=== PATIENT | male | born 1980 ===

== ENCOUNTER 2020-10-16 11:58 | Outpatient (REF) | payer SELFPAY ==
[2020-10-16 14:00] LABS: MANUAL DIFF FLAG NO
[2020-10-16 14:16] LABS: Basophils Percent Auto 0.5 % (0-2); Eosinophils Absolute Auto 0.2 X10*3/uL (0.0-0.4); Eosinophils Percent Auto 3.4 % (0-4); Hematocrit 48.3 % (42-52); Hemoglobin 16.4 g/dl (14.0-18.0); Imm Gran Abs Auto 0.02 X10*3/uL (0.00-0.03); Imm Gran Pct Auto 0.4 % (0.0-0.4); Lymphocytes Absolute Auto 2.2 X10*3/uL (1.2-4.9); Lymphocytes Percent Auto 38.4 % (20-40); Mean Corpuscular Hemoglobin 30.1 pg (27.0-33.0); Mean Corpuscular Volume 88.8 fL (80-98); Mean Platelet Volume 10.1 fL (9.4-12.4); Monocytes Absolute Auto 0.3 X10*3/uL (0.1-1.2); Monocytes Percent Auto 4.8 % (2-11); Neutrophils Absolute Auto 2.9 X10*3/uL (2.0-8.3); Neutrophils Percent Auto 52.5 % (45-73); Platelet Count 262 X10*3/uL (160-400); Red Blood Count 5.44 X10*6/uL (4.60-5.80); Red Cell Distribution Width 12.9 % (11.0-16.0); White Blood Count 5.6 X10*3/uL (4.8-10.8)
[2020-10-16 14:47] LABS: Alanine Aminotransferase 54 U/L (0-40); Anion Gap 12 (12-20); Aspartate Amino Transferase 30 U/L (5-37); Blood Urea Nitrogen 13 mg/dL (9-16); Calcium 9.8 mg/dL (8.4-10.2); Carbon Dioxide 32 mmol/L (22-29); Chloride 101 mmol/L (96-108); Cholesterol 176 mg/dL; Estimated Glomerular Filt Rate > 60; Glucose Fasting 79 mg/dL (60-99); HDL Cholesterol 40 mg/dL; LDL Cholesterol Calculated 81 mg/dl; Potassium 4.7 mmol/l (3.3-5.1); Sodium 140 mmol/L (135-145); Triglycerides 276 mg/dL
== END 2020-10-16 11:59 | disposition home or self-care (01) ==
LOC: HO.HMGCLDS 11:58
PROVIDERS: PCP Internal Medicine; Visit Provider Internal Medicine
DX: Z00.00 Encounter for general adult medical examination without abnormal findings (principal); I10 Essential (primary) hypertension; M53.9 Dorsopathy, unspecified
CPT/HCPCS: 36415; 80048; 80061; 84450; 84460; 85025

== ENCOUNTER → 2021-05-17 15:00 | Outpatient (BNVA) | payer MEDICARE, SELFPAY | PROVIDERS: PCP Internal Medicine; Referring Provider Internal Medicine; Visit Provider Urology | DX: Z30.09 Encounter for other general counseling and advice on contraception (principal); F41.8 Other specified anxiety disorders | CPT/HCPCS: 99202 ==

== ENCOUNTER 2021-08-05 06:30 | Emergency (ER) | payer MEDICARE, SELFPAY ==
--- NOTE | ~2021-08-05 | XR_ITS ---
EXAMINATION: XR LUMBOSACRAL SPINE CLINICAL INFORMATION: Back pain COMPARISON: None TECHNIQUE: Three views of the lumbosacral spine. FINDINGS: Bone alignment is normal. No fracture or dislocation is seen. There is degenerative disc disease at L5-S1. Disc spaces are otherwise normal. Paraspinal soft tissues are normal. XR/XR lumbar spine 2-3V IMPRESSION: Degenerative disc disease at L5-S1.
[2021-08-05 06:56] VITALS: BP 129/74; PULSE 58; RESP 16; TEMP 35.7; O2SAT 99; BMI 28.1
--- NOTE | 2021-08-05 07:45 | ED.BACK ---
HPI - Back Pain/Injury General Chief Complaint: Back Pain/Injury Stated Complaint: back pain Time Seen by Provider: 08/05/21 07:37 Source: patient Mode of arrival: ambulatory Limitations: no limitations History of Present Illness HPI Narrative: This is a very pleasant 40 years old male presented ambulatory to the emergency department with a chief complaint of lower back pain. He states that on Thursday was a work he lifted a heavy weight and since then he has been experiencing lower back pain. Denies any problem with bladder, denies any saddle anesthesia, denies any weakness. He is overall healthy. MD elicited complaint: back pain Onset (ago): day(s) (3) Timing: constant Severity: moderate Similar Symptoms Previously: No Quality: sharp Location: lumbar spine Radiation: none Exacerbating factors: movement Relieving factors: none Context: while lifting Associated symptoms: denies other symptoms Related Data Home Medications Medication Instructions Recorded Confirmed ibuprofen 200 mg tablet (Advil) 200 mg PO Q6H PRN 10/16/20 Previous Rx's Medication Instructions Recorded famotidine 40 mg tablet 40 mg PO DAILY #30 tab 10/16/20 acetaminophen 300 mg-codeine 30 mg 1 tab PO Q8H #7 tab 05/17/21 tablet diazepam 2 mg tablet (Valium) 2 mg PO DAILY #2 tab 05/17/21 naproxen 500 mg tablet (Naprosyn) 500 mg PO BID PRN #20 tab 08/05/21 oxycodone 5 mg capsule 5 mg PO Q8H PRN #12 cap 08/05/21 Allergies Allergy/AdvReac Type Severity Reaction Status Date / Time carisoprodol [Soma] Allergy Unknown itchy Verified 05/17/21 15:08 orphenadrine Allergy Unknown itchy Verified 05/17/21 15:08 Review of Systems Review of Systems: Yes all other systems are reviewed and are negative Constitutional: Constitutional: Denies fever(s) and Denies frequent falls Cardiovascular: Cardiovascular: Denies chest pain Respiratory: Respiratory: Reports no additional respiratory complaints Gastrointestinal: Gastrointestinal: Denies diarrhea, Denies nausea and Denies vomiting Neurologic: Denies frequent falls, Denies radicular pain and Denies restless legs PMFSH Past Medical History Medical History Fracture of metacarpophalangeal (MCP) joint Heartburn Multilevel degenerative disc disease Vasectomy evaluation Family History Family History Father Diabetes mellitus Social History Social History Alcohol intake: never Smoked in Last 30 Days: No Use of substances other than those prescribed or required for medical reasons: No Advance Directives: Yes Advance Directives Information Provided: Yes Advance Directives on File: No Physical Exam Vital Signs: Vital Signs: Last Vital Signs Temp 96.3 F L 08/05/21 06:56 Pulse 58 08/05/21 06:56 Resp 16 08/05/21 06:56 BP 129/74 08/05/21 06:56 Pulse Ox 99 08/05/21 06:56 Body Mass Index 28.1 Const: Other: He appear well in not acute distress he is drinking coffee during my exam General: cooperative, healthy appearing, comfortable and no acute distress Nutritional Appearance: average body habitus Orientation/consciousness: oriented to person, oriented to place and patient oriented x3 HENMT: Head: Yes normal to inspection General nose exam: Normal external nose present Face and sinus: Yes normal facial exam Mouth: Normal oral and palatal mucosa present Neck: Neck: Yes normal visual inspection and Yes full ROM Chest: Chest palpation & inspection: normal inspection of the chest Resp: Effort & Inspection: normal respiratory effort Auscultation: clear to auscultation bilaterally Cardio: Jugular venous distension: no JVD Rate: regular rate Rhythm: regular rhythm GI: Inspection: Yes normal to inspection Palpation (GI): Soft to palpation Skin: General skin exam: no rashes or lesions noted, elasticity normal and turgor normal Lesions: no lesions Rashes: no rashes Neuro: General: oriented to person, oriented to place and patient oriented x3 Cranial nerves: Yes CN's II-XII intact bilaterally Gait exam (Neuro): Normal gait present Motor exam (neuro): 5/5 motor strength present throughout Course Course Course Narrative: I reviewed the x-ray I do not see any acute bony abnormality, patient is fully ambulatory he does not have any neuro deficit no red flags such as fever such as IVDA he will be discharged home with follow-up with the primary care physician MDM - Back Pain/Injury Imaging Data LS Spine xray: Radiologist's impression: EXAMINATION: XR LUMBOSACRAL SPINE CLINICAL INFORMATION: Back pain COMPARISON: None TECHNIQUE: Three views of the lumbosacral spine. FINDINGS: Bone alignment is normal. No fracture or dislocation is seen. There is degenerative disc disease at L5-S1. Disc spaces are otherwise normal. Paraspinal soft tissues are normal. XR/XR lumbar spine 2-3V IMPRESSION: Degenerative disc disease at L5-S1. Dictated By: Discharge Plan Discharge Clinical Impression: Back pain Patient Disposition: Home, Self-Care Instructions: Acute Low Back Pain (ED) Additional Instructions: Please follow-up with your primary care physician tomorrow, return to the emergency room if you worse, if you of weakness in the legs if you experience numbness in the legs review of problem urinating/unable to urinate Prescriptions: New oxycodone 5 mg capsule 5 mg PO Q8H PRN (Reason: pain) Qty: 12 RF: 0 naproxen [Naprosyn] 500 mg tablet 500 mg PO BID PRN (Reason: PAIN) Qty: 20 RF: 0 No Action ibuprofen [Advil] 200 mg tablet 200 mg PO Q6H PRNRF: 0 famotidine 40 mg tablet 40 mg PO DAILY Qty: 30 RF: 4 acetaminophen-codeine 300-30 mg tablet 1 tab PO Q8H Qty: 7 RF: 0 diazepam [Valium] 2 mg tablet 2 mg PO DAILY Qty: 2 RF: 0 Referrals: Judith Reaves MD [Primary Care Provider] - 2 days Stand Alone Forms: Work/School Release Interventions: ED Discharge Assessment Last Done: 08/05/21 08:52 Discharge Date/Time: 08/05/21 08:53
[2021-08-05] MEDS: NaPROXEN 500 MG TABLET PO (08:13)
== END 2021-08-05 08:53 | disposition home or self-care (01) ==
PROVIDERS: Emergency Provider Emergency Medicine; PCP Internal Medicine
DX: M54.50 Low back pain, unspecified (principal)
CPT/HCPCS: 72100; 99283; 99284

== ENCOUNTER → 2021-09-04 11:02 | Outpatient (BNVA) | payer MEDICARE, SELFPAY | PROVIDERS: PCP Internal Medicine; Visit Provider Urology | DX: Z30.2 Encounter for sterilization (principal); F41.8 Other specified anxiety disorders | CPT/HCPCS: 55250 ==

== ENCOUNTER → 2021-12-04 15:23 | Outpatient (BNVA) | payer MEDICARE, SELFPAY | PROVIDERS: PCP Internal Medicine; Visit Provider Urology | DX: Z30.2 Encounter for sterilization (principal); F41.8 Other specified anxiety disorders; Z88.8 Allergy status to other drugs, medicaments and biological substances | CPT/HCPCS: 99212 ==

== ENCOUNTER 2022-01-30 17:51 | Outpatient (REF) | payer BC, SELFPAY ==
[2022-01-30 18:55] LABS: Influenza A PCR NEGATIVE (Negative); Influenza B PCR NEGATIVE (Negative); Resp Syncy Virus RNA Qual PCR NEGATIVE (Negative); SARS COV2 PCR INHOUSE NEGATIVE (Negative)
== END 2022-01-30 17:52 | disposition home or self-care (01) ==
LOC: HO.LNP 17:51
PROVIDERS: Visit Provider Internal Medicine
DX: Z20.822 Contact with and (suspected) exposure to COVID-19 (principal); J02.9 Acute pharyngitis, unspecified; R05.9 Cough, unspecified
CPT/HCPCS: 0241U

== ENCOUNTER 2023-12-16 08:35 | Outpatient (AMB) | payer OTHER, SELFPAY ==
[2023-12-16 08:40] VITALS: BP 118/70; PULSE 75; O2SAT 97; BMI 28.7
--- NOTE | 2023-12-16 08:40 | MHC.PC.OV ---
Vital Signs 12/16/23 08:40 Height 5 ft 7 in Weight 183 lb 4 oz BMI 28.7 BP 118/70 Blood Pressure Location Lt brachial Position Sitting Pulse 75 Pulse Source Pulse Oximeter Pulse Oximetry (%) 97 Oxygen Delivery Method Room Air Intake Visit Reasons: Est care, + Tspot Allergies carisoprodol [Soma] Allergy (Unknown, Verified 12/16/23 09:01) itchy orphenadrine Allergy (Unknown, Verified 12/16/23 09:01) itchy Medication List - Last Reconciled 12/16/23 by TALISHA Conti ibuprofen (Advil) 200 mg PO Q6H PRN Tobacco use date assessed: 12/16/23 Dental Screening Dental Screen Date: 12/16/23 Did you have a dental visit in the last 12 months?: No Did you have a dental problem in the last 6 months where you did not have access to dental care?: No Was dental information given to patient?: Patient has dentist HPI HPI Comments History of Present Illness Details Patient recently, 6 days prior to this appointment, had hep B, Tdap, MMR, varicella, COVID-19, influenza vaccine. 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 Patient [place]. Patient denies any symptoms today. Denies chest pain, shortness a breath, nausea, vomiting, diarrhea, cough, numbness. [facility] Medical History Heartburn Vasectomy evaluation Fracture of metacarpophalangeal (MCP) joint Multilevel degenerative disc disease Family History Father Diabetes mellitus Social History Housing: House Alcohol intake: never Patient Tobacco Use Status: Never used Tobacco e-Cigarette/Vaping Use: Never Used Second Hand Smoke Exposure: No Current occupational status: employed Current occupation: [employer] Current occupational exposures/hazards: Yes Questionnaire PHQ-9 Over the last 2 weeks, how often have you been bothered by any of the following problems? 1. Little interest or pleasure in doing things: not at all 2. Feeling down, depressed, or hopeless: not at all 3. Trouble falling or staying asleep, or sleeping too much: not at all 4. Feeling tired or having little energy: not at all 5. Poor appetite or overeating: not at all 6. Feeling bad about yourself - or that you are a failure or have let yourself or your family down: not at all 7. Trouble concentrating on things, such as reading the newspaper or watching television: not at all 8. Moving or speaking so slowly that other people could have noticed. Or the opposite - being so fidgety or restless that you have been moving around a lot more than usual: not at all 9. Thoughts that you would be better off or of hurting yourself in some way: not at all Total score: 0 Depression Screening Interpretation: Negative Depression Screening Done: Yes 96172 - PHQ-9 Billing: Yes Source: Developed by Drs. Rangel Leija, Melania Guadarrama, Nilson Canela and colleagues, with an educational wil from [employer] Thrive Questionnaire Date Thrive assessed: 12/16/23 I am a: Patient What is your living situation today?: I have a steady place to live Within the past 12 months, did the food you bought not last and you didn't have the money to get more?: Never true Within the past 12 months, did you worry whether your food would run out before you got money to buy more?: Never true Do you have trouble paying for medicines?: No Do you have trouble getting transportation to medical appointments?: No Do you have trouble paying your heating and electricity bill?: No Do you have trouble taking care of your child, family member or friend?: No Do you have trouble with day-to-day activities such as bathing, preparing meals, shopping, managing finances, etc.?: No Are you currently unemployed and looking for a job?: No Are you interested in more education?: Yes THRIVE Score: 0 AUDIT C Alcohol Use Questionnaire (AUDIT-C) 1. How often do you have a drink containing alcohol?: 2-4 times a month 2. How many drinks containing alcohol do you have on a typical day when you are drinking?: 3 or 4 3. How often do you have six or more drinks on one occasion?: Never Total Score: 3 ROLAND-7 AMB Questionnaire ROLAND-7 Date ROLAND - 7 assessed: 12/16/23 Feeling nervous, anxious, or on edge: 0 = Not at all Not being able to stop or control worryin = Not at all Worrying too much about different things: 0 = Not at all Trouble relaxin = Not at all Being so restless that it is hard to sit still: 0 = Not at all Becoming easily annoyed or irritable: 0 = Not at all Feeling afraid as if something awful might happen: 0 = Not at all Total ROLAND-7 score (0-4 normal; 5-9 mild; 10-14 moderate; 15-21 severe): 0 Source: Developed by Drs. Rangel Leija, Melania Guadarrama, Nilson Canela and colleagues, with an educational wil from [employer] ROLAND-7 Assessment Billing ROLAND-7 Assessment Tool: ROLAND-7 Assessment 65040 Review of Systems Const Details: Constitutional : No Weight loss, No Fever, No Chills, No Fatigue, No Malaise ENT/Mouth : No sore throat, No Rhinorrhea Eyes: No Eye Pain, No Swelling, No Redness Cardiovascular : No Chest Pain, No SOB, No Dyspnea on Exertion, No Orthopnea, No Edema, No Palpitations Respiratory : No Cough, No Sputum, No Wheezing Gastrointestinal : No Nausea, No Vomiting, No Diarrhea, No Constipation, No abdominal Pain, No Hematochezia, No Melena Genitourinary : No Dysuria, No Urinary Frequency, No Hematuria, Musculoskeletal : No joint pain, No Myalgias, No Joint Swelling Skin : No Skin Lesions, No rash Neuro : No Weakness, No Numbness, No Dizziness, No Headache Psych : No Anxiety/Panic, No Depression Heme/Lymph: No Bruising, No Bleeding,No Lymphadenopathy Endocrine : No Polyuria, No Polydipsia All other systems reviewed and are negative Physical exam (Primary Care) Vital Signs: Last Vital Signs Pulse 75 12/16/23 08:40 BP 118/70 12/16/23 08:40 Pulse Ox 97 12/16/23 08:40 Oxygen Delivery Method Room Air 12/16/23 08:40 Care Plan Goal for BP management: Vital signs reviewed stable BMI result Body Mass Index 28.7 Tobacco/Smoking Status: Tobacco use Status Tobacco use date assessed 12/16/23 12/16/23 08:47 Patient Tobacco Use Status Never used Tobacco 12/16/23 08:47 e-Cigarette/Vaping Use Never Used 12/16/23 08:47 Depression Screening Interpretation: Negative Const Other: Appearance: Alert.? Oriented X3.? No acute distress.? Head: Normocephalic, atraumatic, no step-offs or deformities Eyes: Pupils equal, round and reactive to light.? Neck: Normal inspection.? Neck supple.? CVS: Normal heart rate and rhythm.? Pulses normal.?+ systolic murmur. Respiratory: No respiratory distress.? Breath sounds normal.? Neuro: Oriented X 3.? No motor deficit.? No sensory deficit. CN 2-12 intact Assessment and Plan Assessment & Plan (1) Positive TB test: Comment: Patient immigrated from country [place]. Recent T spot came up positive. Will order chest x-ray. Will order CBC CMP Code(s): R76.11 - Nonspecific reaction to tuberculin skin test without active tuberculosis (2) Systolic murmur: Comment: Patient has systolic murmur on physical exam. Will order echocardiogram to get baseline Code(s): R01.1 - Cardiac murmur, unspecified Plan: Take your medications as prescribed. If you were prescribed antibiotics today, it is important that you take your medication to their entirety, do not skip any doses, do not finish them early. Follow-up with your primary care provider this week. Return to the emergency department with new or worsening symptoms. Such as fevers, chills, chest pain, shortness of breath, nausea, vomiting, dizziness, headache, vision changes, lethargy In case of emergency call 911 Plan Follow-up in 4 months. Orders: Orders XR chest 2V Today R76.11 - Nonspecific reaction to tuberculin skin test without active tuberculosis Comprehensive Met. Panel Today Z91.89 - Other specified personal risk factors, not elsewhere classified Complete Blood Count Auto Diff Today D72.829 - Elevated white blood cell count, unspecified CA echo transthoracic complete Today R01.1 - Cardiac murmur, unspecified Review Declined TDap/Td: 12/16/23 Coding Level of Care Code Est Pt Level 3 (00754) Diagnoses Positive TB test R76.11 Systolic murmur R01.1 Additional Codes ROLAND-7 Assessment Billing - ROLAND-7 Assessment Tool: ROLAND-7 Assessment 75049 ([id number]) Time Spent (min) 22
== END 2023-12-16 09:05 | disposition home or self-care (01) ==
PROVIDERS: PCP Internal Medicine; Visit Provider Nurse Practitioner Primary Care
DX: R76.11 Nonspecific reaction to tuberculin skin test without active tuberculosis (principal); R01.1 Cardiac murmur, unspecified
CPT/HCPCS: 99213

== ENCOUNTER 2023-12-16 09:06 | Outpatient (REF) | payer OTHER, SELFPAY ==
--- NOTE | ~2023-12-16 | XR_ITS ---
EXAMINATION: XR CHEST CLINICAL INFORMATION: Nonspecific reaction to tuberculin skin test COMPARISON: None available. TECHNIQUE: 2 views of the chest were obtained. FINDINGS: The cardiomediastinal silhouette is within normal limits. The lungs are well expanded. There is no focal consolidation, edema, or effusion. No pneumothorax. No acute osseous abnormality. XR/XR chest 2V IMPRESSION: No radiographic evidence of active pulmonary disease..
[2023-12-16 10:22] LABS: Basophils Percent Auto 0.4 % (0-2); Eosinophils Absolute Auto 0.1 X10*3/uL (0.0-0.4); Eosinophils Percent Auto 2.7 % (0-4); Hematocrit 44.6 % (42.0-52.0); Hemoglobin 16.2 g/dl (14.0-18.0); Imm Gran Abs Auto 0.02 X10*3/uL (0.00-0.03); Imm Gran Pct Auto 0.4 % (0.0-0.4); Lymphocytes Absolute Auto 1.4 X10*3/uL (1.2-4.9); Lymphocytes Percent Auto 31.2 % (20-40); MANUAL DIFF FLAG SCAN; Mean Corpuscular HGB Conc 36.3 g/dl (31.0-36.0); Mean Corpuscular Hemoglobin 31.5 pg (27.0-33.0); Mean Corpuscular Volume 86.6 fL (80.0-98.0); Mean Platelet Volume 9.5 fL (9.4-12.4); Monocytes Absolute Auto 0.3 X10*3/uL (0.1-1.2); Monocytes Percent Auto 7.4 % (2-11); Neutrophils Absolute Auto 2.6 x10*3/uL (2.0-8.3); Neutrophils Percent Auto 57.9 % (45-73); Platelet Count 245 X10*3/uL (160-400); Red Blood Count 5.15 X10*6/uL (4.60-5.80); Red Cell Distribution Width 11.9 % (11.0-16.0); SCAN SMEAR FLAG 1; White Blood Count 4.5 X10*3/uL (4.8-10.8)
[2023-12-16 11:07] LABS: Alanine Aminotransferase 97 U/L (0-40); Albumin Level 4.2 g/dL (3.5-5.0); Alkaline Phosphatase 127 U/L (39-117); Anion Gap 13 (12-20); Aspartate Amino Transferase 41 U/L (5-37); Bilirubin Total 0.8 mg/dL (0.0-1.0); Blood Urea Nitrogen 13 mg/dL (9-16); Calcium 9.2 mg/dL (8.4-10.2); Carbon Dioxide 27 mmol/L (22-29); Chloride 105 mmol/L (96-108); Estimated Glomerular Filt Rate > 60; Glucose Random 82 mg/dL (60-115); Potassium 3.3 mmol/L (3.3-5.1); Sodium 142 mmol/L (135-145); Total Protein 8.1 g/dL (6.5-8.0)
[2023-12-16 11:11] LABS: SLIDE REVIEW VERIFIED
== END 2023-12-16 09:07 | disposition home or self-care (01) ==
LOC: HO.HMGCX 09:06
PROVIDERS: PCP Nurse Practitioner Primary Care; Visit Provider Nurse Practitioner Primary Care
DX: R76.11 Nonspecific reaction to tuberculin skin test without active tuberculosis (principal); D72.829 Elevated white blood cell count, unspecified; Z91.89 Other specified personal risk factors, not elsewhere classified
CPT/HCPCS: 36415; 71046; 80053; 85025

== ENCOUNTER → 2024-01-08 08:59 | Outpatient (REF) | payer OTHER, SELFPAY ==
--- NOTE | 2024-01-08 09:05 | CA_ITS ---
Transthoracic Echocardiogram Patient (Last, First, Middle): Ricardo Rosario, Gender: Male Date of : 1980 Age: 43 Procedure Date: 01/08/2024 Procedure Type: Transthoracic Echocardiogram Location: OP Height: 170.18 cm Weight: 81.65 kg BSA: 1.93 m2 Heart Rate: bpm BP: 124 / 80 mmHg Embedded Software Architect: Referring MD: Reginaldo WOODALL Symptoms: R01.1 - Cardiac murmur, unspecified Study Quality: Good ECG Rhythm: Sinus Conclusions: - The left ventricular systolic function is low normal. The calculated ejection fraction is 54% by biplane method. - No obvious valvular pathology seen on this study. Findings Left Ventricle Normal left ventricular cavity size. There is mildly increased left ventricular wall thickness. The left ventricular systolic function is low normal. The calculated ejection fraction is 54% by biplane method. There is no evidence of regional wall motion abnormalities. Diastolic function is normal for age. Right Ventricle Mildly increased right ventricular cavity size. There is normal right ventricular systolic function. Atria Both atria are normal in size. Aortic Valve There is a normal trileaflet aortic valve. There is no aortic valve stenosis. There is no aortic valve regurgitation. Mitral Valve The mitral valve appears normal. There is trace mitral valve regurgitation. There is no mitral valve stenosis. Pulmonic Valve The pulmonic valve is likely normal. Tricuspid Valve Normal tricuspid valve structure. There is trace tricuspid valve regurgitation. There is no evidence of pulmonary hypertension. Great Vessels The asc aorta is normal in size. Venous The inferior vena cava is normal in size and collapses greater than 50% with inspiration. Pericardium/Pleural There is no evidence of pericardial effusion. Prior Study Comparison No prior study available for comparison. Recommendations, Care & Conclusions No obvious valvular pathology seen on this study. Measurements 2D Linear Measurements IVSd: 1.10 0.6-0.9/0.6-1.0 cm LVIDd: 4.65 3.9-5.3/4.2-5.9 cm LVIDd Index: 2.41 2.4-3.2/2.2-3.1 cm/m2 LVIDs: 3.14 2.0-3.6 cm LVPWd: 1.14 0.7-1.1 cm Ao Root: 2.70 2.1-3.5 cm LA Diam: 3.50 2.7-3.8/3.0-4.0 cm LAIDs Index: 1.81 1.5-2.3 cm/m2 LV Mass: 235.60 67-162/88-224 g LV Mass Index: 122.07 43-95/49-115 g/m2 LVOT Diam: 2.00 3.0+(-)1.3 cm 2D Systolic Function EF 4C: 46.90 >55% EF 2C: 61.40 >55% EF BiP: 53.90 >55% Mitral Valve MV Pk E: 0.89 MV PK A: 0.63 MV Decel Time: 159.00 E/A: 1.40 E'Lateral: 12.20 E'Medial: 8.05 E/E' Med: 11.00 E/E' Lat: 7.30 PHT: 47.00 MVA PHT: 4.68 Decel [place]: 5.57 Aortic Valve AoV Pk José Antonio: 1.51 AoV Mn José Antonio: 1.07 AoV VTI: 0.31 AoV Pk Grad: 9.00 Aov Mn Grad: 5.00 ADRIANE Cont.VTI: 2.56 LVOT LVOT Pk José Antonio: 1.26 LVOT Mn José Antonio: 0.77 LVOT VTI: 0.25 LVOT Pk Grad: 6.00 LVOT Mn Grad: 3.00 LVOT Diam: 2.00 LVOT Area: 3.14 Diastolic Function MV Pk E: 0.89 MV Pk A: 0.63 E/A: 1.40 E'Medial: 8.05 E/E' Med: 11.00 E' Laterial: 12.20 E/E' Lat: 7.30 Right Ventricle TAPSE (mm): 32.00 TVS' José Antonio: 11.00 Tricuspid Valve TR Pk José Antonio: 2.09 TR Pk Grad: 17.00 RA Press: 3.00 RVSP: 20.00 Great Vessels Aorta Ao Root-2D: 2.70 2.0-3.7 cm Ao Asc: 2.90 2.1-3.4 cm Pulmonary Valve PV Pk José Antonio: 1.11 Peak PV Grad: 5.00 Updated in Other Vendor System with Status of Final Skinny Quiroga MD electronically signed on 01/09/2024 1:21:49 PM with status of Final
== END ==
LOC: HO.CARD 08:59
PROVIDERS: PCP Internal Medicine; Visit Provider Nurse Practitioner Primary Care
DX: R01.1 Cardiac murmur, unspecified (principal)
CPT/HCPCS: 93306

== ENCOUNTER → 2024-01-08 09:05 | Outpatient (BNV) | payer OTHER, SELFPAY | PROVIDERS: PCP Internal Medicine; Visit Provider Internal Medicine | DX: R01.1 Cardiac murmur, unspecified (principal) | CPT/HCPCS: 93306 ==

== ENCOUNTER 2024-04-11 11:15 | Outpatient (AMB) | payer OTHER, SELFPAY ==
--- NOTE | 2024-04-11 11:30 | A.OFFPC_ITS ---
Vital Signs 04/11/24 11:31 Height 5 ft 7 in Weight 190 lb BMI 29.8 BP 112/78 Blood Pressure Location Rt brachial Position Sitting Pulse 50 Pulse Source Pulse Oximeter Pulse Oximetry (%) 97 Oxygen Delivery Method Room Air Intake Visit Reasons: 4 month follow up Intake Note: Pt is here today for his f/u HTN Allergies carisoprodol [Soma] Allergy (Unknown, Verified 04/11/24 11:51) itchy orphenadrine Allergy (Unknown, Verified 04/11/24 11:51) itchy Medication List - Last Reconciled 04/11/24 by Judith Reaves MD ibuprofen (Advil) 200 mg PO Q6H PRN Tobacco use date assessed: 04/11/24 Dental Screening Dental Screen Date: 04/11/24 Did you have a dental visit in the last 12 months?: No Did you have a dental problem in the last 6 months where you did not have access to dental care?: No Was dental information given to patient?: Patient has dentist HPI 4 month follow up HPI Details 43-year-old male here today for follow-u p. Blood pressure is normal, currently not on any medications. He has history of hypertriglyceridemia and elevated liver enzymes on previous blood work. States that he has cut back on his alcohol intake, and has been trying to exercise regularly. Has been feeling well with no complaints at present time [facility] Medical History Elevated liver enzymes Hypertriglyceridemia Heartburn Vasectomy evaluation Fracture of metacarpophalangeal (MCP) joint Multilevel degenerative disc disease Family History Father Diabetes mellitus Social History Housing: House Alcohol intake: never Patient Tobacco Use Status: Never used Tobacco e-Cigarette/Vaping Use: Never Used Second Hand Smoke Exposure: No Current occupational status: employed Current occupation: [employer] Current occupational exposures/hazards: Yes Cognitive needs: No Hearing needs: No Vision needs: No Questionnaire Thrive Questionnaire Date Thrive assessed: 12/16/23 ROLAND-7 AMB Questionnaire ROLAND-7 Date ROLAND - 7 assessed: 12/16/23 Source: Developed by Melania Cornell B.W. Thierry, Nilson Canela and colleagues, with an educational wil from [email or web address]. Review of Systems Const Denies body aches, Denies fatigue, Denies fever(s), Denies headache(s) and Denies weakness Eyes Denies change in vision ENT Denies dizziness, Denies headache(s), Denies nasal congestion and Denies nasal discharge Card Denies chest pain, Denies lightheadedness, Denies palpitations and Denies dyspnea Resp Denies chest congestion, Denies cough, Denies dyspnea and Denies wheezing GI Denies abdominal pain and Denies change in bowel habits Denies dysuria, Denies urinary frequency and Denies urinary urgency Musc Reports no additional complaints Skin/Breast Denies lesions and Denies rash Neuro Denies dizziness, Denies headache(s) and Denies weakness Psych Denies anxiety, Denies depression and Denies panic attacks Endo Denies fatigue, Denies polydipsia, Denies polyuria and Denies palpitations Sherwin/Lymph Denies easy bruising Aller/Immun Denies seasonal rhinorrhea and Denies wheezing Physical exam (Primary Care) Vital Signs: Last Vital Signs Pulse 50 04/11/24 11:31 BP 112/78 04/11/24 11:31 Pulse Ox 97 04/11/24 11:31 Oxygen Delivery Method Room Air 04/11/24 11:31 BMI result Body Mass Index 29.8 Tobacco/Smoking Status: Tobacco use Status Tobacco use date assessed 04/11/24 04/11/24 11:32 Patient Tobacco Use Status Never used Tobacco 04/11/24 11:32 e-Cigarette/Vaping Use Never Used 04/11/24 11:32 Thrive Assessment: Date of Thrive Assessment Date Thrive assessed 12/16/23 04/11/24 11:32 Const General: no acute distress and alert Orientation/consciousness: patient oriented x3 HENMT Ears: external ears normal General nose exam: Normal external nose present Mouth: Normal oral and palatal mucosa present, oropharynx normal and moist mucous membranes Eyes General: appearance normal, both eyes and all related structures Neck Neck: Yes full ROM, Yes no lymphadenopathy and Yes supple Resp Effort & Inspection: normal respiratory effort and able to speak in complete sentences Auscultation: clear to auscultation bilaterally Cardio Rate: regular rate Rhythm: regular rhythm Heart sounds: S1 normal heart sound present and S2 normal heart sound present GI Palpation (GI): Soft to palpation, nontender and no masses Auscultation: normal bowel sounds Back/Spine/Pelvis Back: No back tenderness Skin General skin exam: no rashes or lesions noted Neuro General: patient oriented x3, gait normal, tone normal, moves all extremities, Normal light touch and pain sensation and no focal motor deficits Cranial nerves: Yes CN's II-XII intact bilaterally Cognition (Neuro): normal cognition Extrem General: Yes full ROM, Yes no joint enlargement, Yes no clubbing, cyanosis or edema and Yes no calf tenderness Assessment and Plan Assessment & Plan (1) Elevated liver enzymes: Code(s): R74.8 - Abnormal levels of other serum enzymes Plan: Continued abstinence from alcohol, getting lipid levels under good control will check another liver panel on follow-up visit (2) Hypertriglyceridemia: Code(s): E78.1 - Pure hyperglyceridemia Plan: Previous lipid panel showed elevated triglycerides. Patient advised to follow a low-cholesterol diet, cut back on lot of sugary drinks an alcoholic beverage. Reinforceded importance of following a low cholesterol diet and getting regular cardio exercise, at least 30 minutes 3 to 4 times a week. Advised patient to make healthy food choices, eat more fruits, vegetables, whole grains, wild cau ght fish and low-fat dairy. Limit amount of meat and fried or fatty food products, as well as processed foods and fast foods. Do a fasting lipid panel at least some week prior to next appointment Orders: Orders Lipid Panel 05/22/24 E78.1 - Pure hyperglyceridemia, R74.8 - Abnormal levels of other serum enzymes Comprehensive Plac[facility]. Panel Fast 05/22/24 E78.1 - Pure hyperglyceridemia, R74.8 - Abnormal levels of other serum enzymes Coding Level of Care Code Est Pt Level 3 (27584) Diagnoses Elevated liver enzymes R74.8 Hypertriglyceridemia E78.1
[2024-04-11 11:31] VITALS: BP 112/78; PULSE 50; O2SAT 97; BMI 29.8
== END 2024-04-11 12:08 | disposition home or self-care (01) ==
LOC: HO.HMGC 11:15
PROVIDERS: PCP Internal Medicine; Visit Provider Internal Medicine
DX: R74.8 Abnormal levels of other serum enzymes (principal); E78.1 Pure hyperglyceridemia
CPT/HCPCS: 99213

== ENCOUNTER 2024-06-09 06:01 | Outpatient (REF) | payer OTHER, SELFPAY ==
[2024-06-09 10:50] LABS: Alanine Aminotransferase 32 U/L (0-40); Albumin Level 4.1 g/dL (3.5-5.0); Alkaline Phosphatase 123 U/L (39-117); Anion Gap 10 (12-20); Aspartate Amino Transferase 22 U/L (5-37); Bilirubin Total 0.9 mg/dL (0.0-1.0); Blood Urea Nitrogen 16 mg/dL (9-16); Calcium 8.9 mg/dL (8.4-10.2); Carbon Dioxide 25 mmol/L (22-29); Chloride 108 mmol/L (96-108); Cholesterol 142 mg/dL (<200); Estimated Glomerular Filt Rate > 60; Glucose Fasting 100 mg/dL (60-99); HDL Cholesterol 39 mg/dL (>40); LDL Cholesterol Calculated 81 mg/dL (<100); Potassium 3.5 mmol/L (3.3-5.1); Sodium 139 mmol/L (135-145); Total Protein 7.5 g/dL (6.5-8.0); Triglycerides 111 mg/dL (<150)
== END 2024-06-09 06:02 | disposition home or self-care (01) ==
LOC: HO.HMGCLDS 06:01
PROVIDERS: PCP Internal Medicine; Visit Provider Internal Medicine
DX: E78.1 Pure hyperglyceridemia (principal); R74.8 Abnormal levels of other serum enzymes
CPT/HCPCS: 36415; 80053; 80061

== ENCOUNTER 2024-06-14 10:39 | Outpatient (AMB) | payer OTHER, SELFPAY ==
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
[2024-06-14 10:47] VITALS: BP 110/70; PULSE 68; O2SAT 97; BMI 28.3
== END 2024-06-14 11:46 | disposition home or self-care (01) ==
PROVIDERS: PCP Internal Medicine; Visit Provider Internal Medicine
DX: Z00.01 Encounter for general adult medical examination with abnormal findings (principal); M54.16 Radiculopathy, lumbar region

== ENCOUNTER → 2024-06-14 10:39 | Outpatient (BNVA) | payer OTHER, SELFPAY | PROVIDERS: PCP Internal Medicine; Visit Provider Internal Medicine | DX: Z00.01 Encounter for general adult medical examination with abnormal findings (principal); M54.16 Radiculopathy, lumbar region | CPT/HCPCS: 96127 ==

== ENCOUNTER 2024-07-31 15:08 | Outpatient (REF) | payer OTHER, SELFPAY | END 2024-07-31 15:09 | disposition home or self-care (01) | LOC: HO.MRI 15:08 | PROVIDERS: PCP Internal Medicine; Visit Provider Internal Medicine | DX: M54.16 Radiculopathy, lumbar region (principal); Z87.828 Personal history of other (healed) physical injury and trauma | CPT/HCPCS: 72148 ==

== ENCOUNTER 2024-10-03 13:09 | Outpatient (AMB) | payer OTHER, SELFPAY ==
[2024-10-03 13:12] VITALS: BMI 28.5
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
== END 2024-10-03 14:26 | disposition home or self-care (01) ==
PROVIDERS: PCP Internal Medicine; Referring Provider Internal Medicine; Visit Provider Physician Assistant
DX: M54.16 Radiculopathy, lumbar region (principal)
CPT/HCPCS: 99204

== ENCOUNTER 2025-06-22 09:01 | Outpatient (REF) | payer OTHER, SELFPAY ==
[2025-06-22 13:51] LABS: Alanine Aminotransferase 32 U/L (0-40); Aspartate Amino Transferase 32 U/L (5-37); Cholesterol 143 mg/dL (<200); HDL Cholesterol 41 mg/dL (>40); Triglycerides 103 mg/dL (<150)
== END 2025-06-22 09:02 | disposition home or self-care (01) ==
LOC: HO.HMGCLDS 09:01
PROVIDERS: PCP Internal Medicine; Visit Provider Internal Medicine
DX: Z00.01 Encounter for general adult medical examination with abnormal findings (principal); E78.1 Pure hyperglyceridemia; M53.9 Dorsopathy, unspecified; R73.01 Impaired fasting glucose; R74.8 Abnormal levels of other serum enzymes; Z23 Encounter for immunization
CPT/HCPCS: 36415; 80061; 82947; 83036; 84450; 84460; 90471; 90656; 96127

== ENCOUNTER 2025-06-22 09:01 | Outpatient (AMB) | payer OTHER, SELFPAY ==
--- OUTSIDE RECORDS SUMMARY | 2024-11-01 11:10 | XMS_ITS | Continuity of Care Document ---
Author Organization [facility] Address [address] [place] [address] Phone Care Team Providers Care Water Quality Analyst Name Role Phone Ac iSlva MD Unavailable Unavailable Allergies, Adverse Reactions, Alerts Substance Reaction Status Criticality No Known Allergies Active No Inform ation Medications Medication Instructions Dosage Effective Dates (start - stop) Status Comments gabapentin 300 mg capsule - Active LOSARTAN POTASSIUM (unknown strength) Not Available - Active Procedures Procedure Date Discission 2nd Cataract; Laser Offic/outpt E&m Estab Low-mod 5 <content ID='ProcedureDescri ption_2' xmlns='urn:[email or web address]-org:v3'>Visual Field Exam W/i&r; Exten</content> Optic Nerve Scan Offic/outpt E&m Estab Mod-hi 2 23 <content ID='ProcedureDescri ption_5' xmlns='urn:hl7-org:v3'>Visual Field Exam W/i&r; Exten</content> Optic Nerve Scan Determ Refractive State Offic/outpt E&m Estab Mod-hi 2 22 Determ Refractive State Offic/outpt E&m Estab Low-mod 2 <content ID='ProcedureDescri ption_11' xmlns='urn:hl7-org:v3'>Visual Field Exam W/i&r; Exten</content> Offic/outpt E&m Estab Mod-hi 2 21 Optic Nerve Scan Determ Refractive State Offic/outpt E&m Estab Low-mod 1 <content ID='ProcedureDescri ption_16' xmlns='urn:[email or web address]-org:v3'>Visual Field Exam W/i&r; Exten</content> Postop F/u Visit Incld Global 1 Postop F/u Visit Incld Global 0 Postop F/u Visit Incld Global 0 Extracapsular Cataract Remov I 20 Offic/outpt E&m New Mod Sever 0 Ophth Biomet A-scan; W/io Lens 20 Optic Nerve Scan PRED GATI BROM BOTTLE Cataract Kit Offic/outpt E&m New Mod-hi 45 0 <content ID='ProcedureDescri ption_27' xmlns='urn:[email or web address]-org:v3'>Visual Field Exam W/i&r; Exten</content> PACHYMETRY Fundus Photography W/i&r Advance Directives Directive Yes / No Effective Date File Name No Information Encounters Encounter Description Practice Location Reason(s) For Visit Diagnoses Date Provider Providers Copied on Encounter [facility], [address], [place], [place], [id number], tel:[phone] [facility] Follow up (chief complaint) Other secondary cataract, right eye 5 Ricardo Shen. [address], [place], [address], [place]. tel:[phone] Referring Provider: DEBBIE KELLY [address], [place], [address]. tel:[phone] Offic/outpt E&m Estab Low-mod [facility] , [address], [place], [place], [id number], [place] tel:[phone] [facility] STEPHEN/VF/OCT (chief complaint) Other vitreous opacities, bilateralOther secondary cataract, right eyePreglaucoma , unspecified, bilateralConju nctival pigmentations, right eye 5 Sathyaarlyn Mcdonnell. [address] [facility] [address] [facility], [place], [place], [address], [place]. tel:[phone] Referring Provider: DEBBIE KELLY [address], [place], [address]. tel:[phone] Offic/outpt E&m Estab Mod-hi 2 [facility], [address], [place], [place], [id number], [place] tel:[phone] [facility] STEPHEN/VF/OCT (chief complaint) Other vitreous opacities, bilateralConju nctival pigmentations, right eyePresence of intraocular lensOther secondary cataract, right eyePreglaucoma , unspecified, bilateral Aug- 3 Sathyaarlyn Mcdonnell. [address] [facility], [place], [place], [id number], [place]. tel:[phone] Referring Provider: DEBBIE KELLY [address], [place], [address]. tel:[phone] Offic/outpt E&m Estab Mod-hi 2 [facility], [address], [place], [place], [id number], [place] tel:[phone] [facility] STEPHEN/VF (chief complaint) Other secondary cataract, right eyePreglaucoma , unspecified, bilateral Aug- 2 [facility]. [id number], [place], [place], [id number], [place]. tel:[phone] Referring Provider: DEBBIE KELLY, [address], [place], [address]. tel:[phone] Offic/outpt E&m Estab Low-mod [facility], [address], [place], [place], [address], [place] tel:[phone] [facility] IOP/VF (chief complaint) Presence of intraocular lensPreglaucom a, unspecified, bilateralConju nctival pigmentations, right eyeDry eye syndrome of bilateral lacrimal glands Apr-2 2 Chad Travis. [address] [facility], [place], [address], [place]. tel:[phone] Referring Provider: DEBBIE KELLY, [address], [place], [address]. tel:[phone] Offic/outpt E&m Estab Mod-hi 2 [facility], [address], [place], [place], [id number], [place] tel:[phone] [facility] STEPHEN/OCT (chief complaint) Preglaucoma, unspecified, bilateralPrese nce of intraocular lensLattice degeneration of retina, bilateralOther vitreous opacities, bilateralOther secondary cataract, right eyeConjunctiva l pigmentations, right eye 1 Chad Travis. [address] [facility], [place], [address], [place]. tel:[phone] Referring Provider: DEBBIE KELLY, [address], [place], [address]. tel:[phone] Offic/outpt E&m Estab Low-mod [facility], [address], [place], [place], [id number], [place] tel:[phone] [facility] IOP/VF (chief complaint) Preglaucoma, unspecified, bilateralPrese nce of intraocular lens 1 Chad Travis. [address] [facility], [place], [address], [place]. tel:[phone] Referring Provider: DEBBIE KELLY, [address], [place], [address]. tel:[phone] [facility], [address], [place], [place], [id number], [place] tel:[phone] [facility] No Information 1 Chad Travis. [address] [facility], [place], [address], [place]. tel:[phone] Referring Provider: DEBBIE KELLY, [address], [place], [address]. tel:[phone] [facility], [address], [place], [place], [id number], tel:[phone] [facility] No Information 0 Chad Travis. [address] [facility], [place], [address], . tel:[phone] Referring Provider: DEBBIE KELLY, [address], [place], [place], [facility]. tel:[phone] [facility], [address], [place], [place], [id number], tel:[phone] [facility] No Information 0 Chad Travis. [address] [facility], [facility], [place], [address], . tel:[phone] Referring Provider: DEBBIE KELLY [address], [place], [place], [facility]. tel:[phone] [facility], [address], [place], [place], [id number], tel:[phone] [facility] No Information 0 Chad Travis. [address] [facility], [place], [address], . tel:[phone] Referring Provider: DEBBIE KELLY [address], [place], [address]. tel:[phone] Offic/outpt E&m [facility], [address], [place], [place], [id number], tel:[phone] [facility] IOP/OCT (chief complaint) Preglaucoma, unspecified, bilateralAnter ior subcapsular polar age-related cataract, right eye 0 Dada Camargo. [address] [facility], [place], [place], [address], [place]. tel:[phone] Referring Provider: DEBBIE KELLY, [address], [place], [address]. tel:[phone] Offic/outpt E&m New Mod-hi 45 [facility] , [address], [place], [place], [id number], [place] tel:[phone] [facility] MEETING SPECIALIST (chief complaint) Preglaucoma, unspecified, bilateralAnter ior subcapsular polar age-related cataract, right eyeLattice degeneration of retina, bilateral Nov-0 202 0 Dada Camargo. [address] [facility], [place], [place], [address], [place]. tel:[phone] Referring Provider: DEBBIE KELLY, [address], [place], [address]. tel:[phone] Family History Family Member Type Diagnosis Age At Onset Sister Problem (finding) Retinal disease Payers Payer name Insurance type Covered alliance party ID Authoriza tion(s) HMO [facility] CI [id number] Social History Type Description Quantity Date Captured Comments Alcohol Use Details Unknown Caffeine Use Details Unknown Tobacco Use Status Smoking Status No Information Sex Male Chief Complaint And Reason For Visit From encounter dated '11/01/2024 15:10'. Follow up (chief complaint). Description: Presents for YAG CAP OD Reason For Referral Reason For Referral No Information Plan Of Treatment Date Type Action Status Appointment RICARDO MITCHELL BOOKED History Of Present Illness Encounter Date Complaint History Of Prese nt Illness Follow up Presents for YAG CAP OD STEPHEN/VF/OCT F/U Preglaucoma, unspecified, bilateral, Other secondary cataract, right eye, Conjunctival pigmentations, right eyePt C/O of DVA getting worse in OD ( per Dr Karimi) STEPHEN/VF/OCT PreglaucomaThis pt states that he has not noticed any changes in VA since last visit. STEPHEN/VF PreglaucomaThis pt states that he has not noticed any changes in VA IOP/VF The 41 year old male presents for evaluation of IOP/VF.- last seen 08-06-2021; hx of pseudophakia OU, glaucoma suspect, PCO OD, and refractive error. - feels VA is getting a little worse in OD, OS is doing well. Current glasses are 1 year old. Has stopped using all artificial tears at home. STEPHEN/OCT Pt presents STEPHEN. Follow up preglaucoma, unspecified, bilateral. Pt received new glasses Rx in September 2020, but says that near VA is blurry and actually can he read better without glasses. IOP/VF Pt presents for IOP check, follow up preglaucoma bilateral. IOP/OCT F/u Preglaucoma, unspecified, bilateral:, Anterior subcapsular polar age-related cataract, right eye:No changes since last visit. Still interested in having cataract surgery OD. MEETING SPECIALIST Patient states w ent in for cataract eval elsewhere and was told that there are signs of glaucoma C/O My vision is blurry OD>OS x 2 yrs getting worse. Trouble reading street signs. Trouble reading small print. Patient tried to update glasses in Oct 2019 which did not help with blurriness.History of retina laser OU. Denies history of other ocular surgery. Denies trauma to eyes. Functional Status Date Functional Assessmen t No Information Instructions Date Instruction Additional Infor yuli Impression/Plan Related to Pregl aucoma, unspecified, bilateral Impression/Plan Related to Other vitreous opacities, bilateral Impression/Plan Related to Conju nctival pigmentations, right eye Impression/Plan Related to Other secondary cataract, right eye Impression/Plan Related to Pregl aucoma, unspecified, bilateral Impression/Plan Related to Other secondary cataract, right eye Impression/Plan Related to Other vitreous opacities, bilateral Impression/Plan Related to Conju nctival pigmentations, right eye Impression/Plan Related to Prese nce of intraocular lens Impression/Plan Related to Pregl aucoma, unspecified, bilateral Impression/Plan Related to Other secondary cataract, right eye Impression/Plan Related to Prese nce of intraocular lens Impression/Plan Related to Conju nctival pigmentations, right eye Impression/Plan Related to Dry e ye syndrome of bilateral lacrimal glands Impression/Plan Related to Pregl aucoma, unspecified, bilateral Impression/Plan Related to Other secondary cataract, right eye Impression/Plan Related to Other vitreous opacities, bilateral Impression/Plan Related to Latti ce degeneration of retina, bilateral Impression/Plan Related to Conju nctival pigmentations, right eye Impression/Plan Related to Prese nce of intraocular lens Impression/Plan Related to Pregl aucoma, unspecified, bilateral Impression/Plan Related to Prese nce of intraocular lens Impression/Plan Related to Pregl aucoma, unspecified, bilateral Impression/Plan Related to Pregl aucoma, unspecified, bilateral Impression/Plan Related to Pregl aucoma, unspecified, bilateral Impression/Plan Related to Anter ior subcapsular polar age-related cataract, right eye Impression/Plan Related to Latti ce degeneration of retina, bilateral Impression/Plan Related to Anter ior subcapsular polar age-related cataract, right eye Impression/Plan Related to Pregl aucoma, unspecified, bilateral Impression/Plan Related to Pregl aucoma, unspecified, bilateral Assessments Type Assessment Date assessment Other secondary cataract, right eye Patient Care Teams Name Effective Dates (start - stop) Status Members No Information
[2025-06-22 09:05] VITALS: BP 120/70; PULSE 67; RESP 16; TEMP 36.8; O2SAT 97; BMI 27.9
--- NOTE | 2025-06-22 09:05 | MHC.PC.OV ---
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 Required: No Allergies carisoprodol (Soma) Allergy (Unknown, Verified 06/22/25 09:24) itchy orphenadrine Allergy (Unknown, Verified 06/22/25 09:24) itchy Medication List - Last Reconciled 06/22/25 by Judith Reaves MD ibuprofen (Advil) 200 mg PO Q6H PRN tramadol 50 mg PO BID PRN Tobacco use date assessed: 06/22/25 Dental Screening Dental Screen Date: 06/22/25 Did you have a dental visit in the last 12 months?: No Did you have a dental problem in the last 6 months where you did not have access to dental care?: No Was dental information given to patient?: Patient has dentist HPI Annual PE HPI Details 44-year-old male with history of hypertriglyceridemia, multilevel degenerative disc disease and spine, impaired fasting glucose and 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 [facility] Medical History Protrusion of intervertebral disc of lumbosacral region Lumbar back pain with radiculopathy affecting left lower extremity Impaired fasting glucose Elevated liver enzymes Hypertriglyceridemia Heartburn Vasectomy evaluation Fracture of metacarpophalangeal (MCP) joint Multilevel degenerative disc disease Family History Father Diabetes mellitus Social History Housing: House Alcohol intake: never Patient Tobacco Use Status: Never used Tobacco e-Cigarette/Vaping Use: Never Used Second Hand Smoke Exposure: No Current occupational status: employed Current occupation: [employer] Current occupational exposures/hazards: Yes Cognitive needs: No Hearing needs: No Vision needs: No Questionnaire PHQ-9 Over the last 2 weeks, how often have you been bothered by any of the following problems? 1. Little interest or pleasure in doing things: not at all 2. Feeling down, depressed, or hopeless: not at all 3. Trouble falling or staying asleep, or sleeping too much: not at all 4. Feeling tired or having little energy: not at all 5. Poor appetite or overeating: not at all 6. Feeling bad about yourself - or that you are a failure or have let yourself or your family down: not at all 7. Trouble concentrating on things, such as reading the newspaper or watching television: nearly every day 8. Moving or speaking so slowly that other people could have noticed. Or the opposite - being so fidgety or restless that you have been moving around a lot more than usual: not at all 9. Thoughts that you would be better off or of hurting yourself in some way: not at all Total score: 3 Depression Screening Interpretation: Negative Depression Screening Done: Yes [id number] - PHQ-9 Billing: Yes Source: Developed by Drs. Rangel Leija, Melania Guadarrama, Nilson Canela and colleagues, with an educational wil from [employer]. Thrive Questionnaire Date Thrive assessed: 06/22/25 I am a: Patient What is your living situation today?: I have a steady place to live Within the past 12 months, did the food you bought not last and you didn't have the money to get more?: Sometimes True Within the past 12 months, did you worry whether your food would run out before you got money to buy more?: Sometimes True Do you have trouble paying for medicines?: I choose not to answer this question Do you have trouble getting transportation to medical appointments?: No Do you have trouble paying your heating and electricity bill?: No Do you have trouble taking care of your child, family member or friend?: No Do you have trouble with day-to-day activities such as bathing, preparing meals, shopping, managing finances, etc.?: No Are you interested in more education?: No Please select the resources that you would like help with: None Currently or been in a relationship where the following occur: I choose not to answer THRIVE Score: 2 AUDIT C Alcohol Use Questionnaire (AUDIT-C) 1. How often do you have a drink containing alcohol?: Never 2. How many drinks containing alcohol do you have on a typical day when you are drinking?: 3 or 4 3. How often do you have six or more drinks on one occasion?: Monthly Total Score: 3 ROLAND-7 AMB Questionnaire ROLAND-7 Date ROLAND - 7 assessed: 06/22/25 Feeling nervous, anxious, or on edge: 0 = Not at all Not being able to stop or control worryin = Not at all Worrying too much about different things: 0 = Not at all Trouble relaxin = Not at all Being so restless that it is hard to sit still: 0 = Not at all Becoming easily annoyed or irritable: 0 = Not at all Feeling afraid as if something awful might happen: 0 = Not at all Total ROLAND-7 score (0-4 normal; 5-9 mild; 10-14 moderate; 15-21 severe): 0 Source: Developed by Drs. Rangel Leija, Melania Guadarrama, Nilson Canela and colleagues, with an educational wil from [employer]. Physical exam (Primary Care) Vital Signs: Last Vital Signs Temp 98.3 F 06/22/25 09:05 Pulse 67 06/22/25 09:05 Resp 16 06/22/25 09:05 BP 120/70 06/22/25 09:05 Pulse Ox 97 06/22/25 09:05 Oxygen Delivery Method Room Air 06/22/25 09:05 BMI result Body Mass Index 27.9 Tobacco/Smoking Status: Tobacco use Status Tobacco use date assessed 06/22/25 06/22/25 09:09 Patient Tobacco Use Status Never used Tobacco 06/22/25 09:09 e-Cigarette/Vaping Use Never Used 06/22/25 09:09 PHQ-9: PHQ-9 Score PHQ-9: Total score 3 06/22/25 09:25 Depression Screening Interpretation: Negative Thrive Assessment: Date of Thrive Assessment Date Thrive assessed 06/22/25 06/22/25 09:09 Currently or been in a relationship where the following occur: I choose not to answer Office Procedures Flu Questionnaire Does the patient have a severe egg allergy?: No Does the patient have severe life threatening allergies?: No Does the patient have a fever or illness today?: No Has the patient ever had Guillain-[place] Syndrome?: No Has the patient ever had any past reaction to a flu shot?: No Immunizations Fluarix [id number] (PF) 45 mcg (15 mcg x 3)/0.5 mL IM syringe Performing Provider: Judith Reaves MD Performing Location: [facility] Administered by: Sultana Andrew CMA on 06/22/25 09:43 Dose Route Admin Location Dispensed Lot Number Expiration Date NDC Pitch Filler 0.5 mL IM Left Deltoid 0.5 mL [id number] 03/20/26 06504-818-12 [employer] VIS Given Date VIS Provided VIS Publication Date 06/22/25 Single Vaccine 24 Eligibility Eligibility Date Funding Source Not [facility] Eligible 06/22/25 Private Coding Level of Care Code Est Pt Prev Care 40-64y(54345) Diagnoses Multilevel degenerative disc disease M53.9 Hypertriglyceridemia E78.1 Elevated liver enzymes R74.8 Impaired fasting glucose R73.01 Annual visit for general adult medical examination with abnormal findings Z00. Additional Codes PHQ-9 - 00374 - PHQ-9 Billing: Yes ([id number]) Assessment & Plan Assessment & Plan (1) Multilevel degenerative disc disease: Code(s): M53.9 - Dorsopathy, unspecified Category: Medical (2) Hypertriglyceridemia: Code(s): E78.1 - Pure hyperglyceridemia Category: Medical (3) Elevated liver enzymes: Code(s): R74.8 - Abnormal levels of other serum enzymes Category: Medical (4) Impaired fasting glucose: Code(s): R73.01 - Impaired fasting glucose Category: Medical (5) Annual visit for general adult medical examination with abnormal findings: Code(s): Z00.01 - Encounter for general adult medical examination with abnormal findings Plan: Will check appropriate labs. Recommended dental visit every 6 months and regular eye exams, at least every 2 years. Take adequate calcium in diet and vitamin-D 3 at 2000 IU per cap once a day, in addition to weight-bearing exercises to help maintain good muscle tone and weight control. Instructed to do self-testicular exam check for any mass. Cologuard test ordered for colon cancer screening. Flu vaccine given today. Up-to-date with his Tdap. Reminded to get his COVID booster Orders: Orders Alanine Aminotransferase Today E78.1 - Pure hyperglyceridemia, M53.9 - Dorsopathy, unspecified, R73.01 - Impaired fasting glucose, R74.8 - Abnormal levels of other serum enzymes, Z00.01 - Encounter for general adult medical examination with abnormal findings Aspartate Amino Transferase Today E78.1 - Pure hyperglyceridemia, M53.9 - Dorsopathy, unspecified, R73.01 - Impaired fasting glucose, R74.8 - Abnormal levels of other serum enzymes, Z00.01 - Encounter for general adult medical examination with abnormal findings Glucose Fasting Today E78.1 - Pure hyperglyceridemia, M53.9 - Dorsopathy, unspecified, R73.01 - Impaired fasting glucose, R74.8 - Abnormal levels of other serum enzymes, Z00.01 - Encounter for general adult medical examination with abnormal findings Lipid Panel Today E78.1 - Pure hyperglyceridemia, M53.9 - Dorsopathy, unspecified, R73.01 - Impaired fasting glucose, R74.8 - Abnormal levels of other serum enzymes, Z00.01 - Encounter for general adult medical examination with abnormal findings Influenza [id number] Immunization Today Z23 - Encounter for immunization Hemoglobin A1c Today E78.1 - Pure hyperglyceridemia, M53.9 - Dorsopathy, unspecified, R73.01 - Impaired fasting glucose, R74.8 - Abnormal levels of other serum enzymes, Z00.01 - Encounter for general adult medical examination with abnormal findings Referrals Cologuard Test Z12.11 - Encounter for screening for malignant neoplasm of colon, Z12.12 - Encounter for screening for malignant neoplasm of rectum Medications: Refilled tramadol 50 mg PO BID PRN 14 tabs 0RF pain, moderate
--- OUTSIDE RECORDS SUMMARY | 2025-06-22 09:47 | XMS_ITS | Clinical Summary ---
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 Name Role Phone Unavailable Primary Care Provider Unavailabl e Source Comments PLEASE NOTE, if this patient is a minor, it may be UNLAWFUL to discuss sensitive information that is contained in these records (such as FAMILY PLANNING, MENTAL HEALTH or SUBSTANCE ABUSE) with the minor patient's parent or other person without the patient's specific authorization.[facility] Immunizations Immunization Administration Dates Next Due Moderna COVID-19 Vaccine, re d cap blue label, 12+ Primary Series 01/29/2021,12/31/2020 Social History Tobacco Use Types Packs/Day Years Used Date Smoking Tobacco: Never Assessed Social Connections Answer Date Recorded Social Connections and Isolation 0 12/31/2020 Financial Resource Strain Answer Date R ecorded Financial Resource Strain 0 2020 Stress Answer Date Recorded Stress 0 12/31/2020 Physical Activity Answer Date Recorded Physical Activity 0 12/31/2020 Food Insecurity Answer Date Recorded Food 0 12/31/2020 Transportation Needs Answer Date Record ed Transportation 0 12/31/2020 Housing Stability Answer Date Recorded Housing 0 12/31/2020 Safety and Environment Answer Date Jose rded Safety 0 12/31/2020 Utilities Answer Date Recorded Utilities 0 12/31/2020 Employment Answer Date Recorded Employment 0 12/31/2020 Sex and Gender Information Value Date Recorded Sex Assigned at Not on file Legal Sex Male 12:37 PM PDT Gender Identity Not on file Sexual Orientation Not on file Plan of Treatment Health Maintenance Due Date Last Done Comments Anxiety Screening 1978 Diabetes Screening 1978 Hepatitis C Screening 1978 Lipid Screening 1978 Tobacco Screening 1978 HIV Screening 1993 Hypertension Screening (#1) 1996 Imm-DTaP/Tdap/Td (1 - Tdap) 1997 Imm-Hepatitis B (1 of 3 - 19 + 3-dose series) 1997 CT Colonography 12/09/2023 Colonoscopy 12/09/2023 Colorectal Cancer Screening 12/09/2023 FIT/gFOBT 12/09/2023 Fecal DNA 12/09/2023 Flexible Sigmoidoscopy 12/09/2023 Alcohol and Drug Screen 09/21/2024 Depression Annual Screen 09/21/2024 [id number] ( season) 2025 021, 12/31/2020 Imm-Influenza (#1) 2025 10/16/2020, 06/26/2016 Insurance [facility]
== END 2025-06-22 10:32 | disposition home or self-care (01) ==
LOC: HO.HMCC 09:02
PROVIDERS: PCP Internal Medicine; Visit Provider Internal Medicine
DX: Z23 Encounter for immunization (principal)